=== PATIENT | female | born 1965 | race Caucasian/White ===

== ENCOUNTER 2017-11-09 16:07 | Emergency (ER) | payer OTHER ==
[~2017-11-09] VITALS: Ht 152.4 cm; Wt 80.3 kg
[~2017-11-09 16:07] MED LIST: PRILOSEC OTC20 MG; WELLBUTRIN SR150 MG; ZANTAC300 MG
== END 2017-11-09 19:09 | disposition home or self-care (01) ==
LOC: ER 16:07
DX: J45.998 Other asthma (principal)

== ENCOUNTER 2017-11-19 12:20 | Outpatient (CLI) | payer OTHER | END 2017-11-19 12:21 | disposition home or self-care (01) | LOC: SONOGRAMA 12:20 | DX: Z12.31 Encounter for screening mammogram for malignant neoplasm of breast (principal); Z87.898 Personal history of other specified conditions; N64.4 Mastodynia ==

== ENCOUNTER 2018-01-01 10:48 | Outpatient (CLI) | payer OTHER | END 2018-01-01 10:56 | disposition home or self-care (01) | LOC: SONOGRAMA 10:48 | DX: E04.8 Other specified nontoxic goiter (principal) ==

== ENCOUNTER 2018-02-04 17:45 | Emergency (ER) | payer OTHER ==
[~2018-02-04] VITALS: Ht 152.4 cm; Wt 79.8 kg
[2018-02-04] MEDS ORDERED: CLONAZEPAM1 M1 (17:59)
== END 2018-02-04 18:43 | disposition home or self-care (01) ==
LOC: ER 17:45
DX: M54.2 Cervicalgia (principal)

== ENCOUNTER 2019-02-10 16:54 | Emergency (ER) | payer OTHER ==
[~2019-02-10] VITALS: Ht 152.4 cm; Wt 90.7 kg
[~2019-02-10 16:54] MED LIST changes: +CLONAZEPAM1 M1
[2019-02-10] MEDS ORDERED: SINGULAIR10 MG (17:06)
[2019-02-10] MEDS ORDERED: NEURONTIN300 MG (17:06)
== END 2019-02-10 20:03 | disposition home or self-care (01) ==
LOC: ER 16:54
DX: S80.11XA Contusion of right lower leg, initial encounter (principal); W22.09XA Striking against other stationary object, initial encounter; Y93.01 Activity, walking, marching and hiking; Y92.488 Other paved roadways as the place of occurrence of the external cause; Y99.8 Other external cause status

== ENCOUNTER → 2019-02-22 | Outpatient (CLI) | payer OTHER ==
[~2019-02-22] MED LIST changes: +NEURONTIN300 MG; +SINGULAIR10 MG
== END | disposition home or self-care (01) ==
LOC: NUCLEAR 12:22
DX: M81.0 Age-related osteoporosis without current pathological fracture (principal); Z13.820 Encounter for screening for osteoporosis

== ENCOUNTER 2019-04-21 10:36 | Outpatient (CLI) | payer OTHER | END 2019-04-21 15:35 | disposition home or self-care (01) | LOC: MRI 10:36 | DX: M79.604 Pain in right leg (principal) | CPT/HCPCS: 73718 ==

== ENCOUNTER 2019-11-03 13:07 | Emergency (ER) | payer OTHER ==
[~2019-11-03] VITALS: Ht 152.4 cm; Wt 80.3 kg
[2019-11-03] MEDS ORDERED: PEPCID AC20 MG PO (13:19)
[2019-11-03] MEDS ORDERED: CLONAZEPAM0.5 M1 PO (13:22)
[2019-11-03] MEDS ORDERED: NEURONTIN600 M1 PO (13:22)
[2019-11-03] MEDS ORDERED: PROMETH-CODEIN 65 ML PO (13:53)
[2019-11-03] MEDS ORDERED: MUCINEX1200 MG PO (13:53)
[2019-11-03] MEDS ORDERED: ZITHROMAX500 MG PO (13:53)
== END 2019-11-03 14:18 | disposition home or self-care (01) ==
LOC: ER 13:07
DX: R05 Cough (principal)

== ENCOUNTER 2021-07-06 16:14 | Emergency (ER) | payer OTHER ==
[~2021-07-06] VITALS: Ht 152.4 cm; Wt 79.8 kg
[~2021-07-06 16:14] MED LIST changes: +CLONAZEPAM0.5 M1 PO; +MUCINEX1200 MG PO; +NEURONTIN600 M1 PO; +PEPCID AC20 MG PO; +PROMETH-CODEIN 65 ML PO; +ZITHROMAX500 MG PO
[2021-07-06] MEDS ORDERED: SEROQUEL XR50 MG (16:52)
[2021-07-06] MEDS ORDERED: AMBIEN10 MG (16:52)
== END 2021-07-06 20:22 | disposition home or self-care (01) ==
LOC: ER 16:14
DX: S00.83XA Contusion of other part of head, initial encounter (principal); S30.0XXA Contusion of lower back and pelvis, initial encounter; S10.83XA Contusion of other specified part of neck, initial encounter; W01.198A Fall on same level from slipping, tripping and stumbling with subsequent striking against other object, initial encounter; Y93.89 Activity, other specified; Y92.89 Other specified places as the place of occurrence of the external cause; Y99.8 Other external cause status